=== PATIENT | male | born 1975 | race Hispanic/Latino ===

== ENCOUNTER 2024-05-02 08:35 | Outpatient (CLI) | payer OTHER | END 2024-05-02 08:36 | disposition home or self-care (01) | LOC: CSHWCC 08:35 | PROVIDERS: ATTEND Preventive Medicine Undersea and Hyperbaric Medicine | DX: L89.324 Pressure ulcer of left buttock, stage 4 (principal) | CPT/HCPCS: 99213; G0463 ==

== ENCOUNTER 2024-05-09 11:26 | Outpatient (CLI) | payer OTHER | END 2024-05-09 11:27 | disposition home or self-care (01) | LOC: CSHWCC 11:26 | PROVIDERS: ATTEND Nurse Practitioner Family | DX: L89.324 Pressure ulcer of left buttock, stage 4 (principal) | CPT/HCPCS: 11042 ==

== ENCOUNTER 2024-05-23 11:18 | Outpatient (CLI) | payer OTHER | END 2024-05-23 11:19 | disposition home or self-care (01) | LOC: CSHWCC 11:18 | PROVIDERS: ATTEND Nurse Practitioner Family | DX: L89.324 Pressure ulcer of left buttock, stage 4 (principal) | CPT/HCPCS: 11042; 87070; 87077; 87205 ==

== ENCOUNTER 2024-05-24 15:23 | Emergency (ER) | payer OTHER ==
[2024-05-24] MEDS ORDERED: Piperacillin/Tazobactam 4.5 GM VIAL ONE (16:18)
[2024-05-24 16:33] LABS: #Basophils 0.06 10x3/uL (0.0-0.2); #Eosinphils 0.07 10x3/uL (0.0-0.5); #Monocytes 0.88 10x3/uL (0.0-1.1); %Basophils 0.5 % (0.0-2.0); %Eosinophils 0.6 % (0.0-6.0); %Lymphocytes 11.4 % (18.0-47.0); %Monocytes 7.1 % (0.0-10.0); %Neutrophils 80.1 % (40.0-75.0); Hematocrit 38.2 % (38.8-50.0); Hemoglobin 12.5 g/dL (13.5-17.5); Mean Corpuscular HGB CONC 32.7 g/dL (32.0-36.0); Mean Corpuscular Hemoglobin 28.2 pg (27.0-33.0); Mean Platelet Volume 9.4 fL (7.4-10.4); Platelet Count 344 10x3/uL (150-450); RBC Distribution Width 15.3 % (11.5-14.5); Red Blood Cell (RBC) Count 4.44 10x6/uL (4.32-5.72); White Blood Cell (WBC) Count 12.5 10x3/uL (3.5-10.5)
[2024-05-24 16:46] LABS: ALT (SGPT) 8 U/L (8-55); AST (SGOT) 17 U/L (5-34); Albumin 3.6 g/dL (3.5-5.0); Alkaline Phosphatase 98 U/L (40-110); Anion Gap 12 mmol/L (10-20); BUN (Urea Nitrogen) 17 mg/dL (8.9-20.6); Bilirubin, Total 0.4 mg/dL (0.2-1.2); Calc. Creatinine Clearance 0 mL/min (70-130); Calcium 9.3 mg/dL (7.8-10.44); Carbon Dioxide 24 mmol/L (22-29); Chloride 104 mmol/L (98-107); Estimated GFR 77; Globulin 4.7 g/dL (2.4-3.5); Glucose 96 mg/dL (70-105); Potassium 4.2 mmol/L (3.5-5.1); Protein, Total 8.3 g/dL (6.0-8.3); Sodium 136 mmol/L (136-145)
[2024-05-24] MEDS ORDERED: Vancomycin 2.5 GM, Admixture Fee 1 EACH in Sodium Chloride 0.9% 500 ML IVPB SCH (18:15)
== END 2024-05-24 18:32 | disposition short-term general hospital (02) ==
LOC: CSHERS 15:23
DX: M46.28 Osteomyelitis of vertebra, sacral and sacrococcygeal region (principal)
CPT/HCPCS: 80053; 83605; 85025; 86140; 87040; 96374; J2543; J3370; J7030

== ENCOUNTER 2025-09-05 12:48 | Outpatient (CLI) | payer MEDICAID, OTHER | END 2025-09-05 12:49 | disposition home or self-care (01) | LOC: CSHWCC 12:48 | PROVIDERS: ATTEND Nurse Practitioner Family | DX: L89.324 Pressure ulcer of left buttock, stage 4 (principal); I87.311 Chronic venous hypertension (idiopathic) with ulcer of right lower extremity; L97.312 Non-pressure chronic ulcer of right ankle with fat layer exposed | CPT/HCPCS: 11042; 99214; G0463 ==